=== PATIENT | male | born 1950 | race Caucasian/White ===

== ENCOUNTER → 2017-10-31 | Emergency (ER) | payer BC ==
[~2017-10-31] VITALS: Ht 182.9 cm; Wt 97.5 kg
[~2017-10-31] MED LIST: IBUPROFEN 600 MG TAB PO STA
--- OUTSIDE RECORDS SUMMARY | 2017-10-31 16:28 | XMS REPORT | Clinical Summary ---
Author Author [facility] Address Unknown Phone Unavailable Care Team Providers Care Splicing Supervisor Name Role Phone Asked, Pcp PCP Unavailable Allergies Active Allergy Reactions Severity Noted Date Comments No Known Drug Allergies Current Medications Prescription Sig. Disp. Refills Start End Date Status Date atorvastatin (LIPITOR) 40 0 09/05/19 Active MG tablet 17 Active Problems Problem Noted Date Post-traumatic osteoarthritis of right shoulder 11/10/2016 Encounters Date Type Specialty Care Team Description 03/13/2017 Hospital Radiology Wesly Walker MD Rotator cuff syndrome of Encounter left shoulder 03/11/2017 Procedure Pass Radiology 03/11/2017 Transcribe Access Wesly Walker MD Rotator cuff syndrome of Orders left shoulder (Primary Dx) 02/16/2017 Documentation Orthopedic Surgery Bryan Bello MD 01/15/2017 Office Visit Sports Medicine Bryan Bello MD Disorder of left rotator cuff (Primary Dx); Left shoulder pain, unspecified chronicity 11/10/2016 Office Visit Sports Medicine Bryan Bello MD Post- traumatic osteoarthritis of right shoulder (Primary Dx) 11/06/2016 Hospital Radiology Bryan Bello MD Complete tear of right Encounter rotator cuff 11/04/2016 Transcribe Sports Medicine Bryan Bello MD Right shoulder pain, Orders unspecified chronicity (Primary Dx) 10/29/2016 Procedure Pass Radiology after 10/30/2016 Family History Medical History Relation Name Comments COPD Mother Michele Thomason Relation Name Status Comments Mother Michele Social History Tobacco Use Types Packs/Day Years Used Date Never Smoker Alcohol Use Drinks/Week oz/Week Comments No Sex Assigned at Date Recorded Not on file Last Filed Vital Signs Not on file Plan of Treatment Health Maintenance Due Date Last Done Comments COLONOSCOPY 11/14/1999 ZOSTER VACCINE 2009 PNEUMOCOCCAL 2014 POLYSACCHARIDE VACCINE AGE 65 AND OVER PNEUMOCOCCAL-13 2014 INFLUENZA VACCINE 03/09/2017 Results * MRI Shoulder Wo Contrast Left (03/13/2017 8:31 AM) Specimen Performing Laboratory [facility] [address] [place] [address] Narrative EXAMINATION:MRI SHOULDER WO CONTRAST LEFT CLINICAL HISTORY:M75.102 Unspecified rotator cuff tear or rupture of left shouldernot specified as traumatic, M75.102 COMPARISON:MRI right shoulder November 06, 2016 TECHNIQUE: Multiplanar, multisequence MR imaging of the left shoulder shoulder was performed without contrast. FINDINGS: Low-grade subscapularis and supraspinatus tendinosis. No rotator cuff tear. There is a bifurcated origin of the long head of the biceps tendon arising from the supraglenoid tubercle and supraspinatus tendon/glenohumeral capsule. Tendons are intact. Fluid distention of and nodular intermediate signal intensity within the tendon sheath compatible with tenosynovitis and nodular synovitis. Degenerative signal, tearing, and scarring of the anterosuperior labrum. Degenerative signal and fraying elsewhere in the labrum. High-grade chondromalacia in the glenohumeral joint with extensive full- thickness loss in the superomedial humeral head and central glenoid. Moderate glenohumeral osteoarthritis. Bone marrow signal is normal. Moderate glenohumeral joint effusion and synovitis. Multiple cartilaginous loose bodies are distributed throughout the joint. Mild osteoarthritis of the acromioclavicular joint. Acromion is type I. No inferior displacement, downsloping, or os acromiale. No bursitis. Mild interstitial and fascial edema of the anterior supraspinatus muscle belly compatible low-grade strain. There is normal muscle bulk. No atrophy. IMPRESSION: 1. Moderate glenohumeral joint osteoarthritis with extensive high-grade chondromalacia. 2. Moderate glenohumeral joint effusion and synovitis with numerous cartilaginous loose bodies distributed throughout the joint. Bicipital tenosynovitis and nodular synovitis also 3. Low-grade supraspinatus strain. 4. Degenerative tear of the anterosuperior labrum. 5. Incidental bifurcated origin of the long head of the biceps tendon. present. Thank you for allowing us to participate in the care of your patient. [facility]-[id number] Procedure Note Hm Interface, Radiology Results Incoming - 03/13/2017 11:28 AM CDT EXAMINATION: MRI SHOULDER WO CONTRAST LEFT CLINICAL HISTORY: M75.102 Unspecified rotator cuff tear or rupture of left shoulder not specified as traumatic, M75.102 COMPARISON: MRI right shoulder November 06, 2016 TECHNIQUE: Multiplanar, multisequence MR imaging of the left shoulder shoulder was performed without contrast. FINDINGS: Low-grade subscapularis and supraspinatus tendinosis. No rotator cuff tear. There is a bifurcated origin of the long head of the biceps tendon arising from the supraglenoid tubercle and supraspinatus tendon/glenohumeral capsule. Tendons are intact. Fluid distention of and nodular intermediate signal intensity within the tendon sheath compatible with tenosynovitis and nodular synovitis. Degenerative signal, tearing, and scarring of the anterosuperior labrum. Degenerative signal and fraying elsewhere in the labrum. High-grade chondromalacia in the glenohumeral joint with extensive full- thickness loss in the superomedial humeral head and central glenoid. Moderate glenohumeral osteoarthritis. Bone marrow signal is normal. Moderate glenohumeral joint effusion and synovitis. Multiple cartilaginous loose bodies are distributed throughout the joint. Mild osteoarthritis of the acromioclavicular joint. Acromion is type I. No inferior displacement, downsloping, or os acromiale. No bursitis. Mild interstitial and fascial edema of the anterior supraspinatus muscle belly compatible low-grade strain. There is normal muscle bulk. No atrophy. IMPRESSION: 1. Moderate glenohumeral joint osteoarthritis with extensive high-grade chondromalacia. 2. Moderate glenohumeral joint effusion and synovitis with numerous cartilaginous loose bodies distributed throughout the joint. Bicipital tenosynovitis and nodular synovitis also 3. Low-grade supraspinatus strain. 4. Degenerative tear of the anterosuperior labrum. 5. Incidental bifurcated origin of the long head of the biceps tendon. present. Thank you for allowing us to participate in the care of your patient. [facility]-[id number] * XR Shoulder 2+ Vw Left (01/15/2017 8:45 AM) Specimen Performing Laboratory [facility] [address] [place] [address] Narrative 4 views of the left shoulder are normal without any degenerative changes and no acute fractures. * MRI Shoulder Wo Contrast Right (11/06/2016 9:28 PM) Specimen Performing Laboratory [facility] [address] [place] [address] Narrative EXAMINATION:MRI SHOULDER WO CONTRAST RIGHT CLINICAL HISTORY:Weaknessconcern for full-thickness rotator cuff tear Order diagnosis - Complete rotator cuff tear or rupture of right shouldernot specified as traumatic TECHNIQUE:Multiplanar multisequence MR imaging of the right shoulder was performed without contrast COMPARISON:None. FINDINGS: Rotator cuff: Mildly increased signal and thickening of supraspinatus consistent with tendinosis. No rotator cuff tear identified. Labrum: The posterior labrum is diffusely blunted and compatible with chronic tear. Superior labrum also show degenerative signals. There is also likely anterior superior labral tear. AC joint: Moderate arthrosis. Acromion is type II. Bone marrow: Posterior glenoid is abnormally flattened, and show a focal area of subchondral irregularity and cystic changes, measuring 1 x 1.4 x 1.1 cm. Overlying cartilage is also torn. Several subchondral cysts are noted at the humeral head. Glenohumeral joint: Humeral head is posteriorly decentered. There is evidence for humeral osteophytosis. Abnormalities of the posterior glenoid is noted above. Cartilage irregularity of posterior glenoid as well as superior humeral head noted. Small joint effusion with synovitis. Biceps tendon: The long head of the biceps tendon is within the bicipital groove. The biceps labral complex is intact. Soft tissues: Small subacromial and subdeltoid fluid. No rotator cuff muscle strain. IMPRESSION: 1. Focal area of osteochondral abnormality involving the posterior glenoid. This could be posttraumatic. There is associated arthrosis of the shoulder joint with diffuse labral tear and osteophyte formation and synovitis of the joint. Findings should be correlated with multidirectional instability of the shoulder. [facility]-[id number] Procedure Note Interface, Radiology Results Incoming - 11/06/2016 9:46 PM CDT EXAMINATION: MRI SHOULDER WO CONTRAST RIGHT CLINICAL HISTORY: Weakness concern for full-thickness rotator cuff tear Order diagnosis - Complete rotator cuff tear or rupture of right shoulder not specified as traumatic TECHNIQUE: Multiplanar multisequence MR imaging of the right shoulder was performed without contrast COMPARISON: None. FINDINGS: Rotator cuff: Mildly increased signal and thickening of supraspinatus consistent with tendinosis. No rotator cuff tear identified. Labrum: The posterior labrum is diffusely blunted and compatible with chronic tear. Superior labrum also show degenerative signals. There is also likely anterior superior labral tear. AC joint: Moderate arthrosis. Acromion is type II. Bone marrow: Posterior glenoid is abnormally flattened, and show a focal area of subchondral irregularity and cystic changes, measuring 1 x 1.4 x 1.1 cm. Overlying cartilage is also torn. Several subchondral cysts are noted at the humeral head. Glenohumeral joint: Humeral head is posteriorly decentered. There is evidence for humeral osteophytosis. Abnormalities of the posterior glenoid is noted above. Cartilage irregularity of posterior glenoid as well as superior humeral head noted. Small joint effusion with synovitis. Biceps tendon: The long head of the biceps tendon is within the bicipital groove. The biceps labral complex is intact. Soft tissues: Small subacromial and subdeltoid fluid. No rotator cuff muscle strain. IMPRESSION: 1. Focal area of osteochondral abnormality involving the posterior glenoid. This could be posttraumatic. There is associated arthrosis of the shoulder joint with diffuse labral tear and osteophyte formation and synovitis of the joint. Findings should be correlated with multidirectional instability of the shoulder. [facility]-[id number] after 10/30/2016 Insurance Payer Benefit Subscriber ID Type Phone Address Plan / Group MEDICARE MEDICARE xxxxxxxxxx Medicare [place], [place] PART A AND B BCBS BCBS xxxxxxxxxxxx PPO [place] PPO/[employer] [place] PPO Home:
--- NOTE | 2017-10-31 17:31 | Diagnostic Imaging Report ---
EXAM: PELVIS AP 1-2 VIEWS DATE: 10/31/2017 4:53 PM INDICATION: \S\ORDER PLACED BY MD \[id number] \S\[id number] \S\Y COMPARISON: None FINDINGS: Single view pelvis. No fracture, subluxation, osseous lesion, or avulsion injury. IMPRESSION: No acute findings. Signed by: Dr. Satish Andrew MD on 10/31/2017 5:28 PM
--- NOTE | 2017-10-31 17:31 | Diagnostic Imaging Report ---
EXAM: LOWER LEG LEFT DATE: 10/31/2017 5:10 PM INDICATION: \S\ORDER PLACED BY MD \S\[id number] \S\[id number] \S\Y COMPARISON: None FINDINGS: No fracture, subluxation, osseous, or soft tissue abnormality lower left leg. IMPRESSION: No acute findings. Signed by: Dr. Satish Andrew MD on 10/31/2017 5:28 PM
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
== END | disposition home or self-care (01) ==
LOC: ER 16:26
DX: G89.11 Acute pain due to trauma (principal); S80.12XA Contusion of left lower leg, initial encounter; S90.02XA Contusion of left ankle, initial encounter; V22.4XXA Motorcycle driver injured in collision with two- or three-wheeled motor vehicle in traffic accident, initial encounter; Y92.488 Other paved roadways as the place of occurrence of the external cause
CPT/HCPCS: 72170; 99283